=== PATIENT | female | born 2000 | race Two or more races ===

== ENCOUNTER 2022-05-06 18:22 | Emergency (ER) | payer MEDICAID ==
[~2022-05-06] VITALS: Ht 149.9 cm; Wt 92.5 kg
[2022-05-06 19:15] VITALS: BP 134/95
[2022-05-06] MEDS ORDERED: CYCL-837 PO (19:20)
[2022-05-06] MEDS ORDERED: IBUP800T26 PO (19:20)
== END 2022-05-06 23:42 | disposition home or self-care (01) ==
LOC: ER 18:22 → EDBD 18:22 → ER 23:42
DX: S50.01XA Contusion of right elbow, initial encounter (principal); M54.2 Cervicalgia; V49.9XXA Car occupant (driver) (passenger) injured in unspecified traffic accident, initial encounter; Y93.89 Activity, other specified; Y92.89 Other specified places as the place of occurrence of the external cause; Y99.8 Other external cause status